=== PATIENT | male | born 1985 | race Caucasian/White ===

== ENCOUNTER 2024-02-21 19:22 | Emergency (ER) | payer BC ==
[2024-02-21 19:27] VITALS: BP 131/79; PULSE 92; RESP 18; TEMP 98
[2024-02-21 19:43] LABS: Basophils # (A) 0.1 k/uL (0-0.2); Basophils % (A) 1 %; Eosinophils # (A) 0.3 k/uL (0-0.7); Eosinophils % (A) 2 %; HCT 45.1 % (39.0-53.0); HGB 14.2 gm/dL (13.0-17.5); Lymphocytes # (A) 3.2 k/uL (1.0-4.8); Lymphocytes % (A) 24 %; MCH 29.3 pg (25.0-35.0); MCHC 31.5 g/dL (31.0-37.0); Mean Platelet Volume 8.5; Monocytes # (A) 0.8 k/uL (0-1.0); Monocytes % (A) 6 %; Neutrophils # (A) 8.8 k/uL (1.3-7.7); Neutrophils % (A) 65 %; Platelet Count 259 k/uL (150-450); RBC 4.85 m/uL (4.30-5.90); RDW 12.1 % (11.5-15.5); WBC 13.5 k/uL (3.8-10.6)
[2024-02-21 19:51] LABS: INR 0.9 (<1.2); Partial Thromboplastin Time 29.2 sec (22.0-30.0); Prothrombin Time 10.3 sec (10.0-12.5)
[2024-02-21 20:02] LABS: ALT 31 U/L (4-49); AST 30 U/L (17-59); African American GFR (CKD) >90 (>60 ml/min/1.73 sqM); Albumin 4.7 g/dL (3.5-5.0); Alkaline Phosphatase 87 U/L (38-126); Anion Gap 7 mmol/L; Blood Urea Nitrogen 19 mg/dL (9-20); Calcium 9.4 mg/dL (8.4-10.2); Carbon Dioxide 25 mmol/L (22-30); Chloride 105 mmol/L (98-107); Glucose 99 mg/dL (74-99); Magnesium 1.9 mg/dL (1.6-2.3); Non-African American GFR(CKD) >90 (>60 ml/min/1.73 sqM); Potassium 4.4 mmol/L (3.5-5.1); Sodium 137 mmol/L (137-145); Total Bilirubin 0.6 mg/dL (0.2-1.3); Total Protein 7.7 g/dL (6.3-8.2)
--- NOTE | 2024-02-21 20:04 | ED ---
Chest Pain HPI - General Chief Complaint: Chest Pain Stated Complaint: Chest pain Time Seen by Provider: 02/21/24 19:40 Source: patient, RN notes reviewed Mode of arrival: ambulatory Limitations: no limitations - History of Present Illness Initial Comments: 39-year-old male with history of hypertension presenting with chest pain x 2 weeks. States the pain is in the middle of his chest and radiates to his back. - Related Data Home Medications Medication Instructions Recorded Confirmed Aspirin EC [Ecotrin Low Dose] 81 mg PO DAILY 02/22/24 02/22/24 Ibuprofen [Motrin Ib] 200 - 600 mg PO Q8H PRN 02/22/24 02/22/24 lisinopriL [Zestril] 10 mg PO DAILY 02/22/24 02/22/24 Allergies Allergy/AdvReac Type Severity Reaction Status Date / Time No Known Allergies Allergy Verified 02/22/24 10:52 Review of Systems ROS Statement: Those systems with pertinent positive or pertinent negative responses have been documented in the HPI. ROS Other: All systems not noted in ROS Statement are negative. Past Medical History Past Medical History: No Reported History History of Any Multi-Drug Resistant Organisms: None Reported Past Surgical History: No Surgical Hx Reported Past Psychological History: No Psychological Hx Reported Smoking Status: Current every day smoker Past Alcohol Use History: None Reported Past Drug Use History: None Reported General Exam - General Exam Comments Initial Comments: Visual Physical Exam Vital signs reviewed General: Well-appearing, nontoxic, no acute distress. Head: Normocephalic, atraumatic Eyes: PERRLA, EOMI ENT: Airway patent Chest: Nonlabored breathing Skin: No visual rash, normal skin tone Neuro: Alert and oriented 3 Musculoskeletal: No gross abnormalities Limitations: no limitations Course Vital Signs 02/21/24 19:24 Temperature 98 F Pulse Rate 92 Respiratory 18 Rate Blood Pressure 131/79 O2 Sat by Pulse 99 Oximetry Chest Pain MDM - MDM I completed the quick note portion of this chart signed Wilma Roberts PA-C Patient left AGAINST MEDICAL ADVICE from the facility. Disposition Clinical Impression: Chest pain Disposition: LEFT AGAINST MEDICAL ADVICE Referrals: [place], PAC [Primary Care Provider] - 1-2 days
--- NOTE | 2024-02-21 22:58 | XR ---
EXAMINATION TYPE: XR chest 2V DATE OF EXAM: 02/21/2024 7:38 PM CLINICAL INDICATION:Male, 39 years old with history of Chest Pain; [facility] COMPARISON: None TECHNIQUE: XR chest 2V. Frontal and lateral views of the chest.. FINDINGS: Lines/Tubes/Devices: No indwelling lines are seen. Heart/mediastinum: Heart size is normal. Mediastinum appears normal. Pulmonary vascularity: Not increased, Lungs/Pleura: There is no evidence of pleural effusion, focal consolidation, or pneumothorax. Musculoskeletal: No acute osseous abnormality demonstrated in the limits of the exam. Other findings: None. IMPRESSION: No acute cardiopulmonary abnormality.
== END 2024-02-21 23:39 | disposition left against medical advice (07) ==
LOC: EC 19:22
DX: R07.89 Other chest pain (principal); F17.200 Nicotine dependence, unspecified, uncomplicated; Z53.29 Procedure and treatment not carried out because of patient's decision for other reasons
CPT/HCPCS: 36415; 71046; 80053; 83735; 84484; 85025; 85610; 85730; 93005; 99285

== ENCOUNTER 2024-02-22 08:44 | Emergency (ER) | payer BC ==
--- NOTE | 2024-02-22 08:53 | ED ---
Chest Pain HPI - General Source: patient, RN notes reviewed Mode of arrival: ambulatory Limitations: no limitations - History of Present Illness Complaint: chest pain <Rhonda Murphy - Last Filed: 02/22/24 08:50> - General Source: patient, RN notes reviewed Mode of arrival: ambulatory Limitations: no limitations - History of Present Illness MD Complaint: chest pain <Shelly Blanton - Last Filed: 02/22/24 17:24> - General Chief Complaint: Chest Pain Stated Complaint: chest pain Time Seen by Provider: 02/22/24 08:50 - History of Present Illness Initial Comments: Quick Note: This is a 39 year old male who presents to the emergency department for chest pain. States that this has been occurring intermittently for the last 3 weeks. Pain is better with activity and worse at rest. States that the pain feels different each time, sometimes it is pressure and sometimes it is burning. Denies any shortness of breath or history of cardiac problems. Patient was evaluated here yesterday and had a complete workup, but left due to the extended wait time. (Rhonda Murphy) This is a 39-year-old male with history of hypertension and high cholesterol presents emergency department chief complaint of chest pain that is been occurring over the past few weeks. Patient states that the pain is a burning sensation in the front of his chest and sometimes radiates into his back. Pain is nonreproducible. He states that this pain is better with exertion and occurs randomly when he is at rest. States the pain is better while laying down and exacerbated with sitting up. Patient denies shortness of breath, dizziness, palpitations, chest pressure or radiation. Patient denies history of [place] or CVA. States that he has a stress test scheduled on March 27 referred from his primary care. (Shelly Blanton) - Related Data Home Medications Medication Instructions Recorded Confirmed Aspirin EC [Ecotrin Low Dose] 81 mg PO DAILY 02/22/24 02/22/24 Ibuprofen [Motrin Ib] 200 - 600 mg PO Q8H PRN 02/22/24 02/22/24 lisinopriL [Zestril] 10 mg PO DAILY 02/22/24 02/22/24 Allergies Allergy/AdvReac Type Severity Reaction Status Date / Time No Known Allergies Allergy Verified 02/22/24 10:52 Review of Systems ROS Other: All systems not noted in ROS Statement are negative. <Rhonda Murphy - Last Filed: 02/22/24 08:50> ROS Other: All systems not noted in ROS Statement are negative. <Shelly Blanton - Last Filed: 02/22/24 17:24> ROS Statement: Those systems with pertinent positive or pertinent negative responses have been documented in the HPI. Past Medical History Past Medical History: No Reported History History of Any Multi-Drug Resistant Organisms: None Reported Past Surgical History: No Surgical Hx Reported Past Psychological History: No Psychological Hx Reported Smoking Status: Current every day smoker Past Alcohol Use History: None Reported Past Drug Use History: None Reported <Rhonda Murphy - Last Filed: 02/22/24 08:50> General Exam <Rhonda Murphy - Last Filed: 02/22/24 08:50> General appearance: alert, in no apparent distress Head exam: Present: atraumatic, normocephalic, normal inspection Eye exam: Present: normal appearance, PERRL, EOMI. Absent: scleral icterus, conjunctival injection, periorbital swelling ENT exam: Present: normal exam, mucous membranes moist Neck exam: Present: normal inspection. Absent: tenderness, meningismus, lymphadenopathy Respiratory exam: Present: normal lung sounds bilaterally. Absent: respiratory distress, wheezes, rales, rhonchi, stridor Cardiovascular Exam: Present: regular rate, normal rhythm, normal heart sounds. Absent: systolic murmur, diastolic murmur, rubs, gallop, clicks GI/Abdominal exam: Present: soft, normal bowel sounds. Absent: distended, tenderness, guarding, rebound, rigid Extremities exam: Present: normal inspection, full ROM, normal capillary refill. Absent: tenderness, pedal edema, joint swelling, calf tenderness Back exam: Present: normal inspection Neurological exam: Present: alert, oriented X3, CN II-XII intact Psychiatric exam: Present: normal affect, normal mood Skin exam: Present: warm, dry, intact, normal color. Absent: rash <Shelly Blanton - Last Filed: 02/22/24 17:24> - General Exam Comments Initial Comments: Visual Physical Exam Vital signs reviewed General: Well-appearing, nontoxic, no acute distress. Head: Normocephalic, atraumatic Eyes: PERRLA, EOMI ENT: Airway patent Chest: Nonlabored breathing Skin: No visual rash, normal skin tone Neuro: Alert and oriented 3 Musculoskeletal: No gross abnormalities (Rhonda Murphy) Course Vital Signs 02/22/24 02/22/24 08:52 11:01 Temperature 97.9 F 98.2 F Pulse Rate 86 73 Respiratory 18 16 Rate Blood Pressure 161/92 119/70 O2 Sat by Pulse 98 99 Oximetry Chest Pain MDM <Rhonda Murphy - Last Filed: 02/22/24 08:50> <Shelly Blanton - Last Filed: 02/22/24 17:24> - [facility] I performed the QuickNote portion of this chart. Signed Rhonda Murphy PA-C. (Rhonda Murphy) Was pt. sent in by a medical professional or institution ([facility], [employer], urgent care, hospital, or longterm...) When possible be specific @ -No Did you speak to anyone other than the patient for history (EMS, parent, family, police, friend...)? What history was obtained from this source @ -No Did you review nursing and triage notes (agree or disagree)? Why? @ -I reviewed and agree with nursing and triage notes Were old charts reviewed (outside hosp., previous admission, EMS record, old EKG, old radiological studies, urgent care reports/EKG's, longterm records)? Report findings @ -Reviewed patient's laboratory results from 02/20 no acute changes in CBC, CMP or coagulation profile. Troponin nonelevated.chest X-ray 02/20 no acute cardiopulmonary process noted. Differential Diagnosis (chest pain, altered mental status, abdominal pain women, abdominal pain men, vaginal bleeding, weakness, fever, dyspnea, syncope, headache, dizziness, GI bleed, back pain, seizure, CVA, palpatations, mental health, musculoskeletal)? @ -Differential Chest Pain: Stable Angina, Unstable Angina, STEMI, NSTEMI Aortic Dissection, Pneumothorax, Musculoskeletal, Esophageal Spasm GERD, Cholecystitis, Pancreatitis, Zoster, this is not meant to be an all-inclusive list. EKG interpreted by me (3pts min.). @ -completed at 901 reading sinus rhythm, ventricular rate 76, MA interval 153, QTc 397. No acute signs of ischemia. X-rays interpreted by me (1pt min.). @ -None done CT interpreted by me (1pt min.). @ -None done U/S interpreted by me (1pt. min.). @ -None done What testing was considered but not performed or refused? (CT, X-rays, U/S, labs)? Why? @ -None What meds were considered but not given or refused? Why? @ -None Did you discuss the management of the patient with other professionals (professionals i.e. , PA, [employer] [facility] [employer], lab, RT, psych nurse, social media sr strategy manager, scagliola mechanic, teacher, electorate officer, case aide)? Give summary @ -No Was smoking cessation discussed for >3mins.? @ -No Was critical care preformed (if so, how long)? @ -No Were there social determinants of health that impacted care today? How? (Homelessness, low income, unemployed, alcoholism, drug addiction, transportation, low edu. Level, literacy, decrease access to med. care, half-way, rehab)? @ -No Was there de-escalation of care discussed even if they declined (Discuss DNR or withdrawal of care, Hospice)? DNR status @ -No What co-morbidities impacted this encounter? (DM, HTN, Smoking, COPD, CAD, Cancer, CVA, ARF, Chemo, Hep., AIDS, mental health diagnosis, sleep apnea, morbid obesity)? @ -HTN, hyperlipidemia Was patient admitted / discharged? Hospital course, mention meds given and route, prescriptions, significant lab abnormalities, going to OR and other pertinent info. @ -39-year-old male with a chief complaint of chest pain. Chest pain is described as a burning sensation in the front of his chest that occasionally radiates into his back and is better with exertion and exacerbated with rest and while the patient is laying. Laboratory results unremarkable, troponin nonelevated. EKG no acute signs of ischemia. Complete physical examination no acute cardiopulmonary process noted. No lower extremity edema. Patient CBC, CMP and coagulation profile within normal limits. Troponin nonelevated. Amylase and lipase not elevated. Discussion with patient at bedside the opportunity for admission to observation for further evaluation by cardiology where they may recommend further intervention at this time. Patient declines and states that he will follow-up outpatient as scheduled with his primary care provider. Discussed tricked return parameters with the patient. He is in agreement with this. Spoke with Dr. Tucker Undiagnosed new problem with uncertain prognosis? @ -No Drug Therapy requiring intensive monitoring for toxicity (Heparin, Nitro, Insulin, Cardizem)? @ -No Were any procedures done? @ -No Diagnosis/symptom? @ -anterior chest wall pain, non-exertional chest pain Acute, or Chronic, or Acute on Chronic? @ -acute Uncomplicated (without systemic symptoms) or Complicated (systemic symptoms)? @ -uncomplicated Side effects of treatment? @ -No Exacerbation, Progression, or Severe Exacerbation? @ -No Poses a threat to life or bodily function? How? (Chest pain, [place], [place], pneumonia, PE, COPD, DKA, ARF, appy, cholecystitis, CVA, Diverticulitis, Homicidal, Suicidal, threat to staff... and all critical care pts) @ -No (Shelly Blanton) Disposition <Rhonda Murphy - Last Filed: 02/22/24 08:50> Is patient prescribed a controlled substance at d/c from ED?: No Time of Disposition: 11:06 <Shelly Blanton - Last Filed: 02/22/24 17:24> Clinical Impression: Anterior chest wall pain, Nonexertional chest pain Narrative: Please return to the Emergency Department if symptoms worsen or any other concerns. Follow-up with your primary care provider next week for further evaluation. Continue with your scheduled stress test at the end of February. (Shelly Blanton) Disposition: HOME SELF-CARE Condition: Good Instructions (If sedation given, give patient instructions): Chest Wall Pain (ED) Referrals: Darian Swain MD [Primary Care Provider] - 1-2 days
[2024-02-22 09:23] LABS: Basophils # (A) 0.1 k/uL (0-0.2); Basophils % (A) 1 %; Eosinophils # (A) 0.2 k/uL (0-0.7); Eosinophils % (A) 2 %; HCT 46.1 % (39.0-53.0); HGB 14.4 gm/dL (13.0-17.5); Lymphocytes # (A) 2.5 k/uL (1.0-4.8); Lymphocytes % (A) 23 %; MCH 29.3 pg (25.0-35.0); MCHC 31.3 g/dL (31.0-37.0); MCV 93.6 fL (80.0-100.0); Mean Platelet Volume 8.6; Monocytes # (A) 0.7 k/uL (0-1.0); Monocytes % (A) 6 %; Neutrophils % (A) 66 %; Platelet Count 261 k/uL (150-450); RBC 4.93 m/uL (4.30-5.90); RDW 12.2 % (11.5-15.5); WBC 10.7 k/uL (3.8-10.6)
[2024-02-22 09:35] LABS: ALT 28 U/L (4-49); AST 24 U/L (17-59); African American GFR (CKD) >90 (>60 ml/min/1.73 sqM); Albumin 4.4 g/dL (3.5-5.0); Alkaline Phosphatase 86 U/L (38-126); Anion Gap 6 mmol/L; Blood Urea Nitrogen 20 mg/dL (9-20); Calcium 9.4 mg/dL (8.4-10.2); Carbon Dioxide 25 mmol/L (22-30); Chloride 107 mmol/L (98-107); Glucose 115 mg/dL (74-99); Lipase 62 U/L (23-300); Magnesium 1.9 mg/dL (1.6-2.3); Non-African American GFR(CKD) >90 (>60 ml/min/1.73 sqM); Sodium 138 mmol/L (137-145); Total Bilirubin 0.5 mg/dL (0.2-1.3); Total Protein 7.3 g/dL (6.3-8.2)
[2024-02-22 09:42] LABS: INR 0.9 (<1.2); Partial Thromboplastin Time 28.7 sec (22.0-30.0)
[2024-02-22 11:14] VITALS: BP 119/70; PULSE 73; RESP 16; TEMP 98.2
[2024-02-22] MEDS ORDERED: PANTOPRAZOLE 40 MG/10 ML VIAL IVP STA (11:55)
== END 2024-02-22 11:17 | disposition home or self-care (01) ==
LOC: EC 08:44
DX: R07.89 Other chest pain (principal); F17.200 Nicotine dependence, unspecified, uncomplicated; I10 Essential (primary) hypertension; E78.5 Hyperlipidemia, unspecified; Z79.899 Other long term (current) drug therapy; Z79.82 Long term (current) use of aspirin
CPT/HCPCS: 36415; 80053; 83690; 83735; 84484; 85025; 85610; 85730; 93005; 99285